=== PATIENT | female | born 1995 | race Caucasian/White ===

== ENCOUNTER 2022-05-26 06:09 | Emergency (ER) | payer SELFPAY ==
[2022-05-26 06:41] VITALS: BMI 18.0
[2022-05-26] MEDS ORDERED: ACETAMINOPHEN 500 MG TABLET (FP) PO ONE (07:29)
[2022-05-26] MEDS ORDERED: ACETAMINOPHEN 500 MG TABLET (FP) ONE (08:12)
[2022-05-26 08:56] LABS: EPI CELLS 25 /uL (0-25.1); HYALINE CASTS 2 /uL (0-3.1); URINE APPEARANCE CLOUDY; URINE BACTERIA >9,000 /uL (0-1359); URINE BILIRUBIN NEGATIVE (NEGATIVE); URINE COLOR YELLOW; URINE GLUCOSE (UA) NEGATIVE (NEGATIVE); URINE KETONE NEGATIVE (NEGATIVE); URINE LEUK ESTERASE 3+ (NEGATIVE); URINE NITRITE NEGATIVE (NEGATIVE); URINE PROTEIN NEGATIVE (NEGATIVE); URINE RBC 4 /uL (0-23.9); URINE UROBILINOGEN 0.2 mg/dL (0.2-1.0); URINE WBC 401 /uL (0-25.8)
[2022-05-26 10:47] VITALS: BP 95/62; PULSE 77; TEMP 97
[2022-05-26] MEDS ORDERED: cefTRIAXone SODIUM 1 GM VIAL ONE (11:35)
== END 2022-05-26 12:00 | disposition home or self-care (01) ==
LOC: JER 06:09
DX: N10 Acute pyelonephritis (principal)
CPT/HCPCS: 76700-TC; 81003; 84703; 87086; 87186; 99284-25

== ENCOUNTER 2022-09-25 18:27 | Emergency (ER) | payer OTHER ==
[2022-09-25 18:35] VITALS: BP 118/82; PULSE 102; RESP 18; TEMP 97.6; BMI 18.0
[2022-09-25 21:02] LABS: PH,URINE 5.5 (5.0-8.0); URINE APPEARANCE CLEAR; URINE BILIRUBIN NEGATIVE (NEGATIVE); URINE COLOR YELLOW; URINE GLUCOSE (UA) NEGATIVE (NEGATIVE); URINE KETONE TRACE (NEGATIVE); URINE LEUK ESTERASE NEGATIVE (NEGATIVE); URINE NITRITE NEGATIVE (NEGATIVE); URINE PROTEIN NEGATIVE (NEGATIVE); URINE UROBILINOGEN 0.2 mg/dL (0.2-1.0)
[2022-09-25 21:05] LABS: HCG,QUALITATIVE URINE Negative
== END 2022-09-25 22:54 | disposition home or self-care (01) ==
LOC: JERFT 18:27 → JER 18:27 → JERFT 22:54
DX: R10.11 Right upper quadrant pain (principal)
CPT/HCPCS: 76705-TC; 81003; 84703; 87086; 99284-25

== ENCOUNTER 2022-11-21 10:44 | Emergency (ER) | payer OTHER ==
[2022-11-21 10:57] VITALS: BP 121/74; PULSE 106; RESP 18; TEMP 97.7; BMI 18.0
[2022-11-21] MEDS ORDERED: ACETAMINOPHEN 1000 MG/100 ML BAG IVPB ONE (11:50)
[2022-11-21] MEDS ORDERED: SODIUM CHLORIDE 0.9% 500 ML INFUS.BAG IV ONE (11:50)
[2022-11-21] MEDS ORDERED: ACETAMINOPHEN INJECTION 100 ML IVPB ONE (12:06)
[2022-11-21 12:28] LABS: EPI CELLS >36 /uL (0-25.1); HYALINE CASTS 13 /uL (0-3.1); PH,URINE 6.5 (5.0-8.0); URINE APPEARANCE CLOUDY; URINE BACTERIA 2021 /uL (0-1359); URINE BILIRUBIN NEGATIVE (NEGATIVE); URINE COLOR YELLOW; URINE GLUCOSE (UA) NEGATIVE (NEGATIVE); URINE KETONE TRACE (NEGATIVE); URINE LEUK ESTERASE 2+ (NEGATIVE); URINE NITRITE NEGATIVE (NEGATIVE); URINE PROTEIN 1+ (NEGATIVE); URINE RBC 66 /uL (0-23.9); URINE WBC 655 /uL (0-25.8)
[2022-11-21] MEDS ORDERED: IBUPROFEN 600 MG TABLET (FP) PO ONE ×2 (13:44→13:46)
[2022-11-21] MEDS ORDERED: ACETAMINOPHEN 500 MG TABLET (FP) PO ONE (13:44)
[2022-11-21] MEDS ORDERED: ACETAMINOPHEN 325 MG TABLET (FP) ONE (13:53)
[2022-11-21] MEDS ORDERED: ACETAMINOPHEN 325 MG TABLET (FP) PO ONE (13:55)
[2022-11-21] MEDS ORDERED: ONDANSETRON *ODT* 4 MG TABLET SL ONE (14:13)
[2022-11-21] MEDS ORDERED: ONDANSETRON *ODT* 4 MG TABLET ONE (14:20)
== END 2022-11-21 16:06 | disposition home or self-care (01) ==
LOC: JER 10:44
PROC: 3E0333Z Introduction of Anti-inflammatory into Peripheral Vein, Percutaneous Approach (ICD-10-PCS; principal; 2022-11-21)
DX: N30.01 Acute cystitis with hematuria (principal)
CPT/HCPCS: 74176-TC; 81003; 84703; 87086; 87186; 99285-25; Q0162